=== PATIENT | female | born 1960 | race Caucasian/White ===

== ENCOUNTER 2016-09-13 15:36 | Emergency (ER) | payer MEDICARE, OTHER ==
[2016-09-13 19:42] LABS: BASOPHIL 0.3 % (0-2); BILIRUBIN NEGATIVE (NEGATIVE); BLOOD NEGATIVE Ery/uL (NEGATIVE); CLARITY CLEAR (CLEAR); COLOR YELLOW (YELLOW); EOSINOPHIL 1.7 % (0-5); GLUCOSE (U) NORMAL (NORMAL); HCT 40.8 % (37.0-47.0); HGB 13.3 g/dl (12.5-16.0); KETONE (U) NEGATIVE (NEGATIVE); LEUKOCYTES NEGATIVE Leu/uL (NEGATIVE); LYMPHOCYTE 11.9 % (15-48); MCHC 32.6 g/dL (32.0-36.0); MCV 82.8 fL (78.0-100.0); MONOCYTE 7.2 % (0-12); MPV 9.7 fL (6.0-9.5); NEUTROPHIL 78.9 % (41-80); NITRITE NEGATIVE (NEGATIVE); PLT 296 K/uL (150-400); PROTEIN NEGATIVE (NEGATIVE); RBC 4.93 M/uL (4.20-5.40); RDW 15.4 % (11.5-14.0); SPECIFIC GRAVITY <=1.005 (1.001-1.030); UROBILINOGEN 0.2 mg/dL (0.2-1.0); WBC 11.5 K/uL (4.0-10.5); pH 5.5 (5.0-9.0)
[2016-09-13 20:01] LABS: BILIRUBIN - TOTAL 0.5 mg/dL (0.1-1.0); CREATININE 1.1 mg/dL (0.5-1.0); GLOBULIN (CALCULATION) 3.1 g/dL (2.2-4.2); POTASSIUM 3.9 mmol/L (3.5-5.1); TOTAL PROTEIN 7.1 g/dL (6.4-8.3)
[2016-09-13 20:02] LABS: CKMB 1.64 ng/mL (0.97-4.94); TROPONIN T < 0.010 ng/mL
[2016-09-13 20:03] LABS: PRO-BNP 176 pg/mL (0-125)
== END 2016-09-13 21:30 | disposition home or self-care (01) ==
LOC: FER 15:36
PROVIDERS: Emergency Medicine Emergency Medical Services
DX: R60.0 Localized edema (principal); R06.02 Shortness of breath; R05 Cough; I25.10 Atherosclerotic heart disease of native coronary artery without angina pectoris; I13.10 Hypertensive heart and chronic kidney disease without heart failure, with stage 1 through stage 4 chronic kidney disease, or unspecified chronic kidney disease; N18.3 Chronic kidney disease, stage 3 (moderate); E66.01 Morbid (severe) obesity due to excess calories; Z88.5 Allergy status to narcotic agent; Z88.8 Allergy status to other drugs, medicaments and biological substances; Z91.041 Radiographic dye allergy status; Z79.82 Long term (current) use of aspirin; Z79.899 Other long term (current) drug therapy; Z95.5 Presence of coronary angioplasty implant and graft
CPT/HCPCS: 36415; 71010; 80053; 81003; 82550; 82553; 83880; 84484; 85025; 86140; 93005; J1940

== ENCOUNTER 2021-07-03 16:02 | Emergency (ER) | payer MEDICARE, OTHER ==
[~2021-07-03 16:02] MED LIST: ASPIRIN CHEWABL81 MG PO; BACTRIM DS TAB1 EACH PO; BENTYL10 MG PO; COREG25 MG PO; COZAAR100 MG PO; HYDRALAZINE 50M50 MG PO; NORCO 5-325 TA1 EACH PO; PEPCID AC20 MG PO; PHENERGAN25 M1 PO; PREDNISONE 20MG20 MG PO; VITAMIN D10000 UNIT PO; VITAMIN D2000 UNI1 PO; ZETIA10 MG PO
[2021-07-03 16:49] LABS: BASOPHIL 0.4 % (0-2); EOSINOPHIL 1.9 % (0-5); HCT 48.1 % (37.0-47.0); LYMPHOCYTE 12.9 % (15-48); MCH 26.6 pg (25.0-31.0); MCHC 31.2 g/dL (32.0-36.0); MCV 85.3 fL (78.0-100.0); MONOCYTE 8.1 % (0-12); MPV 9.3 fL (6.0-9.5); NEUTROPHIL 76.4 % (41-80); NRBC 0; PLT 331 K/uL (150-400); RBC 5.64 M/uL (4.20-5.40); RDW 14.2 % (11.5-14.0); WBC 11.5 K/uL (4.0-10.5)
[2021-07-03 16:52] LABS: BILIRUBIN 1+ mg/dL (NEGATIVE); BLOOD NEGATIVE Ery/uL (NEGATIVE); CLARITY CLEAR (CLEAR); COLOR YELLOW (YELLOW); GLUCOSE (U) NORMAL (NORMAL); LEUKOCYTES NEGATIVE Leu/uL (NEGATIVE); NITRITE NEGATIVE (NEGATIVE); PROTEIN 1+ mg/dL (NEGATIVE); SPECIFIC GRAVITY >=1.030 (1.001-1.030); pH 5.5 (5.0-9.0)
[2021-07-03 16:58] LABS: BACTERIA 2+; CALCIUM OXALATE CRYSTALS MODERATE; MUCOUS MODERATE
[2021-07-03 17:03] LABS: ALBUMIN 3.5 g/dL (3.4-5.0); BILIRUBIN - TOTAL 0.6 mg/dL (0.2-1.0); BUN/CREAT RATIO (CALC) 10.8 RATIO; CREATININE 1.2 mg/dL (0.51-0.95); GLOBULIN (CALCULATION) 4.4 g/dL; POTASSIUM 3.9 mmol/L (3.5-5.1); TOTAL PROTEIN 7.9 g/dL (6.4-8.2)
[2021-07-03] MEDS ORDERED: AUGMENTIN 500-1 EACH PO (20:33)
[2021-07-03] MEDS ORDERED: PHENERGAN25 M1 PO (20:33)
== END 2021-07-03 21:15 | disposition home or self-care (01) ==
LOC: FER 16:02
PROVIDERS: Nurse Practitioner Family
DX: N39.0 Urinary tract infection, site not specified (principal); R11.0 Nausea; I12.9 Hypertensive chronic kidney disease with stage 1 through stage 4 chronic kidney disease, or unspecified chronic kidney disease; N18.30 Chronic kidney disease, stage 3 unspecified; Z88.6 Allergy status to analgesic agent; Z88.1 Allergy status to other antibiotic agents; Z91.041 Radiographic dye allergy status
CPT/HCPCS: 36415; 80053; 81001; 85025; 87088; J1170; J2405; J7030